=== PATIENT | male | born 1965 | race Caucasian/White ===

== ENCOUNTER 2024-11-26 16:42 | Observation (INO) | payer OTHER, MEDICAID ==
[2024-11-26 17:08] VITALS: BMI 26.6
[2024-11-26] MEDS ORDERED: Acetaminophen 325 MG TAB PO PRN (17:11)
[2024-11-26] MEDS ORDERED: Senokot S 8.6-50 MG TAB PO PRN (17:11)
[2024-11-26 19:11] LABS: Cocaine Metabolite Screen Negative (Negative); THC/Cannabinoid Screen Negative (Negative); Tricyclic Screen PRELIM POSITIVE (Negative)
[2024-11-26] MEDS ORDERED: FLUVOXAMINE 200 MG PO SCH (21:00)
[2024-11-26] MEDS ORDERED: FLUVOXAMINE 100 MG PO SCH (21:00)
[2024-11-26] MEDS ORDERED: QUETIAPINE 200 MG PO SCH (21:00)
[2024-11-26] MEDS: lamoTRIgine 25 MG TAB PO SCH (21:39)
[2024-11-26] MEDS: clonazePAM 0.5 MG TAB PO SCH (21:40)
[2024-11-27 05:38] LABS: #Basophils Less than 0.03 10x3/uL (0.0-0.2); #Eosinophils 0.14 10x3/uL (0.0-0.5); #Monocytes 0.49 10x3/uL (0.0-1.1); #Neutrophils 3.79 10x3/uL (1.5-8.4); %Basophils 0.3 % (0.0-2.0); %Eosinophils 2.1 % (0.0-6.0); %Lymphocytes 32.6 % (18.0-47.0); %Monocytes 7.4 % (0.0-10.0); %Neutrophils 57.3 % (40.0-75.0); Hematocrit 43.5 % (38.8-50.0); Hemoglobin 14.6 g/dL (13.5-17.5); Mean Corpuscular Hemoglobin 29.2 pg (27.0-33.0); Mean Corpuscular Volume 87.0 fL (81.2-95.1); Platelet Count 92 10x3/uL (150-450); Red Blood Cell (RBC) Count 5.00 10x6/uL (4.32-5.72); White Blood Cell (WBC) Count 6.62 10x3/uL (3.5-10.5)
[2024-11-27 05:44] LABS: Anion Gap 11 mmol/L (10-20); BUN (Urea Nitrogen) 14 mg/dL (8.4-25.7); Calc. Creatinine Clearance 94 mL/min (70-130); Calcium 9.0 mg/dL (7.8-10.44); Carbon Dioxide 25 mmol/L (22-29); Chloride 108 mmol/L (98-107); Glucose 99 mg/dL (70-105); Potassium 4.3 mmol/L (3.5-5.1); Sodium 140 mmol/L (136-145)
[2024-11-27 08:38] VITALS: TEMP 97.8
[2024-11-27] MEDS: clonazePAM 0.5 MG TAB PO SCH (09:42)
[2024-11-27] MEDS: Enoxaparin 40 MG (0.4 mL) SYRINGE SC SCH (10:17)
[2024-11-27 13:12] VITALS: BP 106/69
== END 2024-11-27 14:45 | disposition home or self-care (01) ==
LOC: CSHTELE 16:51
PROVIDERS: ADMIT Hospitalist; ATTEND Hospitalist
DX: G40.909 Epilepsy, unspecified, not intractable, without status epilepticus (principal); Z79.899 Other long term (current) drug therapy; G83.84 Todd's paralysis (postepileptic); E78.5 Hyperlipidemia, unspecified; F79 Unspecified intellectual disabilities
CPT/HCPCS: 80048; 80306; 85025; 96372; G0378 ×2; J1650; 36415; 70450; 70496; 70498; 70551; 75809; 80053; 85610; 85730; 93005; 94760; Q9967